=== PATIENT | female | born 1985 | race Caucasian/White ===

== ENCOUNTER 2022-06-08 18:27 | Emergency (ER) | payer OTHER ==
[~2022-06-08] VITALS: Ht 142.2 cm; Wt 81.6 kg
--- NOTE | 2022-06-08 18:30 | NUR ---
RECEIVED PT 36 YRS FEMALE CAME FROM HOME BY YUE C/O GENRALIZED WEEKNESS AND DIZZYNESS AND headach one hr ago DINESES ANY WEEKNESS AT THIS TIME AWAKE AND ALERT
[2022-06-08] MEDS ORDERED: IV NS 0.9% 1,000 ML BAG IV ONE (19:00)
--- NOTE | 2022-06-08 19:30 | NUR ---
LEAH MELCHOR RN
--- NOTE | 2022-06-08 19:47 | NUR ---
RECIEVED PT AWAKE ALERT AND ORIENTED. STARTED 1L NS ON L AC STARTED BY EMS.
[2022-06-08 19:56] LABS: BASOPHILS # (AUTO) 0.1 K/uL (0.0-0.2); BASOPHILS % (AUTO) 0.5 % (0.0-2.0); EOSINOPHILS % (AUTO) 2.3 % (0.0-6.0); HEMATOCRIT 34 % (33-45); LYMPHOCYTES # (AUTO) 2.4 K/uL (0.8-4.8); LYMPHOCYTES % (AUTO) 17.8 % (20.0-44.0); MEAN CORPUSCULAR HGB CONC 32 g/dl (31.0-36.0); MEAN CORPUSCULAR VOLUME 77 fL (82-100); MONOCYTES # (AUTO) 0.5 K/uL (0.1-1.30); MONOCYTES % (AUTO) 3.7 % (2.0-12.0); NEUTROPHILS # (AUTO) 10.3 K/uL (1.8-8.9); NEUTROPHILS % (AUTO) 75.7 % (43.0-81.0); PLATELET COUNT (AUTO) 468 K/uL (150-450); WHITE BLOOD COUNT (AUTO) 13.7 K/uL (4.3-11.0)
--- NOTE | 2022-06-08 20:28 | NUR ---
IV NS 0.9% 1000mL IVPB END TIME 2027
[2022-06-08 21:22] LABS: ALBUMIN 4.8 g/dL (3.4-5.0); BILIRUBIN,DIRECT 0.1 mg/dL (0.0-0.2); BILIRUBIN,TOTAL 0.5 mg/dL (0.2-1.0); CALCIUM, SERUM 10.3 mg/dL (8.5-10.1); CREATININE 0.9 mg/dL (0.6-1.3); POTASSIUM 4.3 mmol/L (3.5-5.1)
--- NOTE | 2022-06-08 22:15 | NUR ---
URINE COLLECTED AND SENT TO LAB
[2022-06-08 22:58] LABS: BILIRUBIN,URINE NEGATIVE (NEGATIVE); COLOR,URINE YELLOW (YELLOW); LEUKOCYTE ESTERASE ,URINE 1+ (NEGATIVE); NITRITE, URINE NEGATIVE (NEGATIVE); PROTEIN,URINE TRACE mg/dl (NEGATIVE); UGLUCOSE 1+ mg/dL (NEGATIVE); UROBILINOGEN,URINE 0.2 EU/dL (0.2)
[2022-06-08 23:11] LABS: BACTERIA,URINE Few /HPF (None Seen); RBC,URINE 0-2 /HPF (0-2); SQUAMOUS EPITHELIAL CELL,UR Few /HPF (None Seen)
[2022-06-08] MEDS ORDERED: NITR100C11 PO (23:28)
[2022-06-08] MEDS ORDERED: NITROFURANTOIN/MONOHYDRATE MACROCRYSTALS 100 MG CAPSULE ONE (23:30)
[2022-06-08] MEDS ORDERED: NITROFURANTOIN/MONOHYDRATE MACROCRYSTALS 100 MG CAPSULE PO ONE (23:30)
--- NOTE | 2022-06-08 23:39 | NUR ---
Patient discharged to home in stable condition. Written and verbal after care instructions given. Patient verbalizes understanding of instruction.IV removed. Catheter intact and site benign. Pressure and 4x4 applied to site. No bleeding noted.
[2022-06-08 23:40] VITALS: BP 109/66
== END 2022-06-08 23:40 | disposition home or self-care (01) ==
LOC: ER 18:30
DX: R55 Syncope and collapse (principal); I10 Essential (primary) hypertension; E11.9 Type 2 diabetes mellitus without complications; I25.2 Old myocardial infarction; E86.0 Dehydration; N39.0 Urinary tract infection, site not specified; E78.5 Hyperlipidemia, unspecified; Z79.4 Long term (current) use of insulin; Z88.8 Allergy status to other drugs, medicaments and biological substances
CPT/HCPCS: 99285; 96360; 71045; 93005 ×2; 85025; 80048; 80076; 81001; 36415; 84484 ×2; 83880; J7030